=== PATIENT | female | born 1940 | race Caucasian/White ===

== ENCOUNTER 2024-08-08 20:20 | Inpatient (IN) | payer MEDICARE, OTHER, SELFPAY ==
[2024-08-08] VITALS (8 sets, daily range): BP systolic 113–127; BP diastolic 56–71; BMI 31.4
[2024-08-08 17:22] LABS: % Basophils 0.5 % (0-2); % Eosinophils 0.2 % (0-6); % Immature Granulocytes 0.7 % (0-0.5); % Lymphocytes 20.5 % (20.5-51.1); % Monocytes 5.4 % (1.7-9.3); % Neutrophils 72.7 % (42.2-75.2); Absolute Immature Granulocytes 0.1 10^3/uL (0-0.05); Absolute Lymphocytes 1.8 10^3/uL (1.2-3.4); Absolute Monocytes 0.5 10^3/uL (0.1-0.6); Absolute Neutrophils 6.3 10^3/uL (1.4-6.5); Hematocrit 40.3 % (37.0-47.0); Hemoglobin 14.1 g/dL (12.0-16.0); Mean Corpuscular Hgb 25.4 pg (27.0-31.0); Mean Corpuscular Volume 72.6 fL (81.0-99.0); Nucleated Red Blood Cells % 0 %; Platelet Count 495 10^3/uL (130-400); Red Blood Cell Count 5.55 10^6/uL (4.20-5.40); Red Cell Dist. Width 22.3 % (11.5-14.5); White Blood Cell Count 8.7 10^3/uL (4.8-10.8)
--- NOTE | 2024-08-08 17:22 | EDRN ---
Richard FRANCO in room speaking w/ daughter.
--- NOTE | 2024-08-08 17:30 | ED.GENMED ---
Addendum entered and electronically signed by Michael Washburn DO 08/09/24 13:26:
CRITICAL CARE STATEMENT: A total of 31 minutes of critical care time was provided for this patient. This includes management of unstable vital signs, evaluation of the patient at bedside, reviewing the patient's pertinent medical records discussion
with EMS providers and patient's family in addition to discussion with consultants, review of old EKGs and review of pertinent medical records. This time with separate from time utilized to perform the aforementioned documented procedures
Original Note:
History of Present Illness
<Tani Isabel PA-C - Last Filed: 08/08/24 19:20>
General
Chief Complaint: Fainting/Passed Out
Source: patient and family
Time Seen by Provider: 08/08/24 16:43
History of Present Illness
History of Present Illness:
83-year-old female presents via EMS from her daughter's house. Patient is away from her residence visiting her daughter. She typically stays at the facility called [facility] in [place]. She lives mostly independently there. Daughter picked
her up today and she seems off. She seems confused and weak. She has not been herself. Daughter notes that she has been taking her medications over the past 24 days. She had the sudden urge to have a bowel movement and went to the bathroom and
was falling asleep and desponded on the toilet. Patient cannot provide significant history. She denies any headache chest pain or abdominal pain. No other complaints at this time
Phy Exam
<Tani Isabel PA-C - Last Filed: 08/08/24 19:20>
Physical Exam
Physical Exam:
General: Well-appearing female no acute respiratory distress
HEENT: Normocephalic atraumatic
Heart: Regular rate and rhythm
Lungs: Clear no wheeze
Abdomen soft tender to the right side of the abdomen no guarding or rebound normal bowel sounds
Extremities: No cyanosis
Skin: Warm no rash
Course
<Tani Isabel PA-C - Last Filed: 08/08/24 19:20>
Orders/Labs/Results
Orders:
Orders
08/08/24 16:57
Electrocardiogram (*1) Urgent
Reason for Study: Chest Pain
Cardiac Monitoring- Treatment ONCE
EKG- Treatment ONCE
IV Insert/Care/Rem.- Treatment PRN
08/08/24 17:07
CR Chest - 2 Views Urgent
Comment:
Reason For Exam: weakness
08/08/24 17:12
Complete Blood Count/With Diff Urgent
Comprehensive Metabolic Panel Urgent
Free T4 Urgent
Magnesium Urgent
Comment: ADD ON
TSH Reflex To Free T4 Urgent
Comment: ADD ON
08/08/24 17:13
COVID-19 Antigen Urgent
Source: Nasal Swab
Influenza A+B Rapid Molecular Urgent
CHEIKH Source: Nasal Swab
Specimen Description:
08/08/24 17:27
CT Abd/pelvis W Iv Cont Urgent
Comment:
Reason For Exam: abdominal pain
08/08/24 17:47
Add On- LAB Urgent
Tests Added?: magnesium
Add On- LAB Urgent
Tests Added?: tsh reflex to t4
08/08/24 17:51
Urinalysis Reflex To Culture Urgent
Date Specimen was Collected: 08/08/24
Time Specimen was Collected: 17:41
Urine Microscopic Reflex Cult Urgent
Urine Culture Urgent
CHEIKH Source: U
Specimen Description:
Date Specimen was Collected: 08/08/24
Time Specimen was Collected: 17:41
08/08/24 18:30
Potassium Chloride [KCl] 40 meq 0.9% Sodium Chloride 250 ml [Nss] 250 ml IV NOW
08/08/24 18:40
Blood Culture Urgent
CHEIKH Source: Blood/Venous
Specimen Description:
08/08/24 18:52
Cortisol, Random Urgent
08/08/24 18:58
Piperacillin/Tazo 2.25 Gram [Zosyn] 2.25 grams in 50 ml IV NOW
Abnormal Lab Results
08/08/24 08/08/24
17:12 17:51
RBC 5.55 H 10^6/uL
(4.20-5.40)
MCV 72.6 L fL
(81.0-99.0)
MCH 25.4 L pg
(27.0-31.0)
RDW 22.3 H %
(11.5-14.5)
Plt Count 495 H 10^3/uL
(130-400)
Abs Immat Gran (auto) 0.1 H 10^3/uL
(0-0.05)
Immature Gran % 0.7 H %
(0-0.5)
Sodium 132 L mmol/L
(135-145)
Potassium 2.8 L mmol/L
(3.5-5.1)
Chloride 91 L mmol/L
(98-107)
Carbon Dioxide 18 L mmol/L
(22-30)
BUN 63 H mg/dl
(7-17)
Creatinine 1.5 H mg/dL
(0.6-1.0)
Glucose 137 H mg/dl
(70-99)
Total Bilirubin 2.4 H mg/dl
(0.2-1.3)
AST 47 H U/L
(14-36)
Alkaline Phosphatase 161 H U/L
(38-126)
TSH (Reflex) 86.10 H uIU/ml
(0.47-4.68)
Free T4 0.36 L ng/dl
(0.78-2.19)
Urine Ketones Trace A
(Negative)
Urine Bilirubin 1+ A
(Negative)
Leukocyte Esterase Rfl 2+ A
(Negative)
Urine WBC (Reflex) 50-60 A /HPF
(0-5)
Urine Bacteria (Reflex) Many A
(Negative)
08/08/24 17:12
08/08/24 17:12
Vital Signs
Initial and Last Documented VS:
Initial Vital Signs
Pulse Resp BP Pulse Ox
94 22 127/70 89
08/08/24 16:47 08/08/24 16:47 08/08/24 16:47 08/08/24 16:47
Last Documented Vital Signs
Temp Pulse Resp BP Pulse Ox
98.1 F 87 29 119/59 99
08/08/24 18:58 08/08/24 18:30 08/08/24 18:30 08/08/24 17:06 08/08/24 18:30
<Michael Washburn, DO - Last Filed: 08/08/24 18:40>
Orders/Labs/Results
Orders:
Orders
08/08/24 16:57
Electrocardiogram (*1) Urgent
Reason for Study: Chest Pain
Cardiac Monitoring- Treatment ONCE
EKG- Treatment ONCE
IV Insert/Care/Rem.- Treatment PRN
08/08/24 17:07
CR Chest - 2 Views Urgent
Comment:
Reason For Exam: weakness
08/08/24 17:12
Complete Blood Count/With Diff Urgent
Comprehensive Metabolic Panel Urgent
Free T4 Urgent
Magnesium Urgent
Comment: ADD ON
TSH Reflex To Free T4 Urgent
Comment: ADD ON
08/08/24 17:13
COVID-19 Antigen Urgent
Source: Nasal Swab
Influenza A+B Rapid Molecular Urgent
CHEIKH Source: Nasal Swab
Specimen Description:
08/08/24 17:27
CT Abd/pelvis W Iv Cont Urgent
Comment:
Reason For Exam: abdominal pain
08/08/24 17:47
Add On- LAB Urgent
Tests Added?: magnesium
Add On- LAB Urgent
Tests Added?: tsh reflex to t4
08/08/24 17:51
Urinalysis Reflex To Culture Urgent
Date Specimen was Collected: 08/08/24
Time Specimen was Collected: 17:41
Urine Microscopic Reflex Cult Urgent
Urine Culture Urgent
CHEIKH Source: U
Specimen Description:
Date Specimen was Collected: 08/08/24
Time Specimen was Collected: 17:41
08/08/24 18:30
Potassium Chloride [KCl] 40 meq 0.9% Sodium Chloride 250 ml [Nss] 250 ml IV NOW
08/08/24 18:40
Blood Culture Urgent
CHEIKH Source: Blood/Venous
Specimen Description:
08/08/24 18:52
Cortisol, Random Urgent
08/08/24 18:58
Piperacillin/Tazo 2.25 Gram [Zosyn] 2.25 grams in 50 ml IV NOW
Abnormal Lab Results
08/08/24 08/08/24
17:12 17:51
RBC 5.55 H 10^6/uL
(4.20-5.40)
MCV 72.6 L fL
(81.0-99.0)
MCH 25.4 L pg
(27.0-31.0)
RDW 22.3 H %
(11.5-14.5)
Plt Count 495 H 10^3/uL
(130-400)
Abs Immat Gran (auto) 0.1 H 10^3/uL
(0-0.05)
Immature Gran % 0.7 H %
(0-0.5)
Sodium 132 L mmol/L
(135-145)
Potassium 2.8 L mmol/L
(3.5-5.1)
Chloride 91 L mmol/L
(98-107)
Carbon Dioxide 18 L mmol/L
(22-30)
BUN 63 H mg/dl
(7-17)
Creatinine 1.5 H mg/dL
(0.6-1.0)
Glucose 137 H mg/dl
(70-99)
Total Bilirubin 2.4 H mg/dl
(0.2-1.3)
AST 47 H U/L
(14-36)
Alkaline Phosphatase 161 H U/L
(38-126)
TSH (Reflex) 86.10 H uIU/ml
(0.47-4.68)
Free T4 0.36 L ng/dl
(0.78-2.19)
Urine Ketones Trace A
(Negative)
Urine Bilirubin 1+ A
(Negative)
Leukocyte Esterase Rfl 2+ A
(Negative)
Urine WBC (Reflex) 50-60 A /HPF
(0-5)
Urine Bacteria (Reflex) Many A
(Negative)
08/08/24 17:12
08/08/24 17:12
Vital Signs
Initial and Last Documented VS:
Initial Vital Signs
Pulse Resp BP Pulse Ox
94 22 127/70 89
08/08/24 16:47 08/08/24 16:47 08/08/24 16:47 08/08/24 16:47
Last Documented Vital Signs
Temp Pulse Resp BP Pulse Ox
98.1 F 87 29 119/59 99
08/08/24 18:58 08/08/24 18:30 08/08/24 18:30 08/08/24 17:06 08/08/24 18:30
<Tani Isabel PA-C - Last Filed: 08/08/24 19:20>
MDM/Problems Addressed
Differential Diagnosis Includes:
Patient with weakness and confusion. Differential is large but includes worsening dementia versus underlying UTI versus COVID or flu versus electrolyte abnormality.
Patient is tender to the right side of the abdomen. CT pending. Will test for COVID and flu chest x-ray pending as well
Patient noted to be hypothermic with a rectal temperature of 95.6 degrees
<Tani Isabel PA-C - Last Filed: 08/08/24 19:20>
*Critical Care Note
Total Time (30-74mins, 75-104mins- exclusive of procedures): Not Applicable
<Tani Isabel PA-C - Last Filed: 08/08/24 19:20>
Update Note
Update Note:
Reviewed patient with emergency room attending. Also spoke with daughter who provided more history. She has not taken her medication in 24 days 1 of which was Synthroid. Added thyroid studies which did demonstrate high TSH and low free T4.
Patient's potassium is low at 2.8. CT still being read chest x-ray is negative. Patient will require admission for altered mental status hypothermia low thyroid state
ED Attending Note
<Tani sIabel PA-C - Last Filed: 08/08/24 19:20>
-
Portions of this chart may have been created with voice recognition software.� Occasional wrong word or��sound alike� substitutions may have occurred due to the inherent limitations of voice recognition software.
<Michael Washburn DO - Last Filed: 08/08/24 18:40>
ED Attending Note
Patient seen and examined by attending physician: Yes
I performed the substantive portion of visit, reviewed & personally made and approve the management plan that is documented in note by myself or GIULIA.: Yes
ED Attending Note:
Seen with PA examined independently 83-year-old female hypothyroid, hypertensive noncompliant with meds for about 3 weeks subacute onset of confusion fatigue abdominal pain nausea nearly passed out today while walking
Here she is hypothermic, renal insufficiency hypokalemic
CT scan noted formal report pending, labs are noted TSH cultures are pending patient daughter and granddaughter who is a medicine resident at [facility] or updated
Discharge Plan
Departure
Patient Disposition: Admit
Date of Disposition: 08/08/24
Time of Disposition: 19:19
Admit to: IMU
Presentation/result/management discussed w/ accepting MD/DO: Hospitalist
Discharge Problem:
Adult myxedema
Prescriptions:
No Action
atorvastatin 10 mg Tablet
10 mg PO DAILY
levothyroxine 100 mcg Tablet
100 mcg PO DAILY
metoprolol tartrate 25 mg Tablet
12.5 mg PO DAILY
cholecalciferol (vitamin D3) [Vitamin D3] 25 mcg (1,000 unit) Tablet
25 mcg PO DAILY
Referrals:
Nancy Bentley MD [Family Provider] -
Interventions
Interventions:
*Risk Screen - Suicide Last Done: 08/08/24 17:00
*General Assessment Last Done: 08/08/24 17:00
*Neglect/Abuse Screening Last Done: 08/08/24 17:00
ED- Fall Risk Assessment Last Done: 08/08/24 17:00
*ED COVID-19 Vaccine History Last Done: 08/08/24 16:57
ED- Cardiac Assessment Last Done: 08/08/24 17:55
ED- Neurological Assessment Last Done: 08/08/24 17:55
ED- Pulmonary Assessment Last Done: 08/08/24 17:55
Discharge Date and Time
Print Language: MOLDOVAN
[2024-08-08 17:35] LABS: Anisocytosis 1+; Macrocytosis 1+; Microcytosis 1+; Normal RBC Morphology No; Ovalocytes 1+; Poikilocytosis Slight; Schistocytes Slight
[2024-08-08 17:36] LABS: Other Cells 100
[2024-08-08 17:38] LABS: ALT (SGPT) 30 U/L (0-35); AST (SGOT) 47 U/L (14-36); Albumin 4.2 g/dl (3.5-5.0); Alkaline Phosphatase 161 U/L (38-126); Blood Urea Nitrogen 63 mg/dl (7-17); Calcium 9.2 mg/dl (8.4-10.2); Carbon Dioxide 18 mmol/L (22-30); Chloride 91 mmol/L (98-107); Estimated Creatinine Clearance 26 ml/min; Glucose 137 mg/dl (70-99); Potassium 2.8 mmol/L (3.5-5.1); Sodium 132 mmol/L (135-145); Total Bilirubin 2.4 mg/dl (0.2-1.3); Total Protein 7.3 g/dl (6.3-8.2); eGFR 34.58
[2024-08-08 17:43] LABS: COVID-19 Antigen Negative (Negative)
[2024-08-08 18:01] LABS: Urine Albumin Trace (Neg - Trace); Urine Bilirubin 1+ (Negative); Urine Character Clear (Clear); Urine Color Yellow; Urine Glucose Negative (Negative); Urine Ketone Trace (Negative); Urine Leukocyte 2+ (Negative); Urine Nitrite Negative (Negative); Urine Occult Blood Negative (Negative); Urine Specific Gravity 1.015 (<1.030); Urine Urobilinogen Negative (Neg - 1+)
[2024-08-08 18:06] LABS: Magnesium 1.8 mg/dl (1.6-2.3)
[2024-08-08 18:09] LABS: Urine Red Blood Cell 0-2 /HPF (0-2)
[2024-08-08 18:10] LABS: Urine Bacteria Many (Negative); Urine White Cell 50-60 /HPF (0-5)
--- NOTE | 2024-08-08 18:30 | EDRN ---
Pharmacist Arin called to mix and send potassium IV at this time.
[2024-08-08] MEDS: KCL 270 MEQ IV (18:51)
[2024-08-08 19:14] LABS: Free T4 0.36 ng/dl (0.78-2.19)
--- NOTE | 2024-08-08 19:19 | HPS.HSE ---
Family Physician
-
Family Physician: Nancy Bentley
Chief Complaint
-
Weakness and change in mental status
History of Present Illness
This is an 83-year-old female with past medical history of hypertension, hypothyroidism, hyperlipidemia who presents emergency department by daughter with confusion weakness and despondence.
Patient apparently was in usual state of health lives by herself in [place]. Today when daughter came to visit her she thought that the patient's thinking was cloudy. She seemed weak and confused. Members of her facility reported that the
patient has not been eating dinner. Patient itself did not immediately complain of anything except for some blood back pain which was not unusual for her. Seen ambulate this way the daughter decided to bring the mother to our house. There she
continued to remain weak and confused. She complained of some abdominal discomfort and tenesmus. While she was on the commode the patient had an episode of unresponsiveness. Since then she has been sleepy until brought to the emergency
department. Patient unable to provide any specific complaints.
According to daughter the patient has not taking Synthroid for the last month. She is also noncompliant with her other medications including her metoprolol and atorvastatin. There was a prior history of acute renal failure in the setting of severe
dehydration from lack of p.o. intake in the remote past.
In the Emergency Department she was hypothermic to 95.9, blood pressure was 120/60, heart rate was 87 and she was satting 99% on room air. ECG shows sinus rhythm with PACs. Rate was 86. There is no acute ST or T wave changes. CBC was
unremarkable. Chemistry is notable for a sodium of 132, potassium of 2.8, bicarb of 18, BUN of 63 and a creatinine of 1.5. Mild LFT abnormalities. TSH was markedly elevated at 86. Chest x-ray was clear. CT of the abdomen pelvis is pending. UA
was equivocal with many squamous cells but also WBCs, bacteria and leukocyte esterase. She was covered with Zosyn in the emergency department. COVID test was negative. Influenza was negative.
Medical History
Past Medical History
Past Medical History: Reports HTN, Hypercholesterolemia and Hypothyroidism
Past Surgical History: Reports Orthopedic (Knee Replacement. ) and Other (Stacey Fundoplication)
Social History
Tobacco: Non-smoker
Alcohol: None
Drug: None
Personal: Single
Living: Alone
Employment: Retired
Family History
Family History: Not pertinent
Allergies / Home Medications
Allergies reflects when Allergies were last updated in [employer].
Home Medications with original date entered in [employer]
Allergy/Medication List:
Allergies
Allergy/AdvReac Type Severity Reaction Status Date / Time
Sulfa (Sulfonamide Allergy Unknown Unverified 08/08/24 18:55
Antibiotics)
Home Medications
atorvastatin 10 mg tablet 10 mg PO DAILY 08/08/24
cholecalciferol (vitamin D3) 25 mcg (1,000 unit) tablet (Vitamin D3) 25 mcg PO DAILY 08/08/24
levothyroxine 100 mcg tablet 100 mcg PO DAILY 08/08/24
metoprolol tartrate 25 mg tablet 12.5 mg PO DAILY 08/08/24
Review of Systems
-
History Source: Patient and Family
Constitutional: Reports Fatigue
EENT: Reports No Symptoms
Respiratory: Reports No Symptoms
Cardiac: Reports No Symptoms
Abdomen/GI: Reports Abdominal Pain
: Reports No Symptoms
Neurological: Reports Weakness
Endocrine: Reports No Symptoms
Hematologic/Lymphatic: Reports No Symptoms
Psych: Reports No Symptoms
Physical Exam
Vital Signs
Vital Signs
Temp Pulse Resp BP Pulse Ox
98.1 F 87 29 119/59 99
08/08/24 18:58 08/08/24 18:30 08/08/24 18:30 08/08/24 17:06 08/08/24 18:30
Physical Exam
General: No Apparent Distress
HEENT: NormoCephalic, Anicteric, Atraumatic and PERRLA
Respiratory: Clear
Cardiac: S1/S2 and Irregular Rhythm
Breast: Deferred by me
GI: Soft, Non Tender, Non Distended and Normal Bowel Sounds
Rectal: Deferred by Provider
Genito-urinary: No costovertebral tender
Musculoskeletal: No Clubbing, No Cyanosis and No Edema
Skin: Warm
Neuro: AO x 3
Hematologic/Lymphatic: No Lymphadenopathy
Psych: Anxious
Laboratory Results
-
08/08/24 17:12
08/08/24 17:12
Laboratory Results
Total Bilirubin 2.4 mg/dl (0.2-1.3) H 08/08/24 17:12
AST 47 U/L (14-36) H 08/08/24 17:12
ALT 30 U/L (0-35) 08/08/24 17:12
Alkaline Phosphatase 161 U/L (38-126) H 08/08/24 17:12
Data Reviewed
-
Diagnostic Radiology: Image Personally Visualized and interpreted
CT Scan: Report Reviewed by me
Medical Tests (Nuc Med, Echo, EKG etc): Image Personally Visualized and interpreted
Lab Data: Labs Reviewed by me
Old Records: Reviewed
Impression/Plan
-
IMPRESSION:
83 y.o female with change in mental status, weakness, poor po intake and despondency. Non-compliant with levothyroxine and found to have TSH of 86. She is hyponatremia, hypokalemic with azotemia. U/A is equivocal despite straight cath. No other
signs of acute infection.
PLAN:
1. NASRIN - Pre-renal azotemia. No history of urinary obstruction or stones. History of poor po intake. No history of NSAIDs, ACEI or ARBs. No other insults. U/A is not remarkable for ATN or GN. 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
- admit to telemetry for hypokalemia and hypothryoid
- IV fluids with NS at 125 ml/hr for now
- bolus with 500 ml NS as well
- CT pending
- avoid nephrotoxins
- renal dose medications
- check urine Na, Cr and protein levels
2. Thyroid myxedema - Severe hypothyroidism. Possibly myxedema. No hypotension, heart failure, heart block. History of noncompliance.
- d/w Dr. Pearl (endocrine). IV levothyroxine 80 mcg now. No official inpatient consult required.
- continue 80 mcg daily
- check random and am cortisol
3. Hypokalemia - History of decreased po intake and hyponatremia. Sinus arrhythmia.
- telemetry
- getting KCl 40 meq IV, will give 20 me po and repeat in 8 hours
- encourage po intake
4. Hyponatremia - multifactorial. NASRIN, dehydration and hypothyroid.
- continue iv fluids and thyroid medications as above
- check random cortisol
- check serum osm
5. UTI - Equivocal edivence given many squamos cells.
- zosyn given in ED
- continue with ceftriaxone for now (no history of resistant bacteria) and d/c if ngtd
- f/u urine cultures
DVT PPX - heparin sq
Code Status - DNR
UPDATEL
-CT with possible small bowel obstruction. No transition point. History of SBO about 7 years ago.
- will keep on clear liquids for now
- abd XR, small bowel follow through in am
- pain control and antiemetics
- surgical consult
[2024-08-08 20:40] LABS: Cortisol, Random 70.3 ug/dl
[2024-08-08] MEDS: NSS 1000 IV (20:42)
[2024-08-08] MEDS: ZOSYN 50 IV (20:43)
[2024-08-08] MEDS: TYLENOL 650 MG PO (20:45)
[2024-08-08 20:55] LABS: Creatine Phosphokinase 105 U/L (30-135)
[2024-08-08] MEDS: LEVOTHROID 80 MCG IV (22:29)
[2024-08-09] VITALS (11 sets, daily range): BP systolic 101–150; BP diastolic 55–111; BMI 32.9
[2024-08-09] MEDS: NSS 1000 IV ×2 (01:30→10:27)
[2024-08-09 02:02] LABS: Blood Urea Nitrogen 59 mg/dl (7-17); Calcium 8.6 mg/dl (8.4-10.2); Carbon Dioxide 19 mmol/L (22-30); Chloride 96 mmol/L (98-107); Estimated Creatinine Clearance 30 ml/min; Glucose 86 mg/dl (70-99); Potassium 2.2 mmol/L (3.5-5.1); Sodium 133 mmol/L (135-145); eGFR 41.06
[2024-08-09] MEDS: HEPARIN 5000 UNITS SC ×3 (02:36→17:48)
[2024-08-09] MEDS: KCL 20 MEQ PO ×2 (02:37)
[2024-08-09 03:34] LABS: Osmolality Urine 528 mOsm/kg (300-900)
[2024-08-09 03:36] LABS: Urine Albumin Trace (Neg - Trace); Urine Bilirubin Negative (Negative); Urine Character Slightly Cloudy (Clear); Urine Color Yellow; Urine Glucose Negative (Negative); Urine Ketone Trace (Negative); Urine Leukocyte 1+ (Negative); Urine Nitrite Positive (Negative); Urine Occult Blood Negative (Negative); Urine Urobilinogen Negative (Neg - 1+)
[2024-08-09 03:39] LABS: Urine Sodium 6 mmol/L (30-90)
[2024-08-09] MEDS: KCL 270 MEQ IV ×2 (03:48→10:27)
[2024-08-09 03:49] LABS: Urine Bacteria Many (Negative)
[2024-08-09 03:51] LABS: Urine White Cell >100 /HPF (0-5)
[2024-08-09 03:52] LABS: Urine Amorphous Seen; Urine Mucus Few; Urine Squamous Cell >30 /LPF (Few)
[2024-08-09] MEDS: ROCEPHIN 1000 MG IV (05:41)
[2024-08-09] MEDS: STERILE WATER FOR INJECTION 10 ML IV (05:41)
[2024-08-09 06:45] LABS: Hemoglobin 11.7 g/dL (12.0-16.0); Mean Corp Hgb Conc. 35.5 g/dL (33.0-37.0); Mean Corpuscular Hgb 25.8 pg (27.0-31.0); Mean Corpuscular Volume 72.7 fL (81.0-99.0); Mean Platelet Volume 8.9 fL (7.4-10.4); Platelet Count 386 10^3/uL (130-400); Red Blood Cell Count 4.54 10^6/uL (4.20-5.40); White Blood Cell Count 7.3 10^3/uL (4.8-10.8)
[2024-08-09 07:17] LABS: Blood Urea Nitrogen 54 mg/dl (7-17); Calcium 8.1 mg/dl (8.4-10.2); Carbon Dioxide 19 mmol/L (22-30); Chloride 99 mmol/L (98-107); Creatine Phosphokinase 110 U/L (30-135); Estimated Creatinine Clearance 33 ml/min; Glucose 85 mg/dl (70-99); Magnesium 1.8 mg/dl (1.6-2.3); Potassium 2.8 mmol/L (3.5-5.1); Sodium 133 mmol/L (135-145); eGFR 45.19
[2024-08-09 07:33] LABS: Free T3 0.92 pg/ml (2.77-5.27); Free T4 0.49 ng/dl (0.78-2.19)
[2024-08-09 07:47] LABS: Cortisol, Random 26.5 ug/dl
[2024-08-09] MEDS: LIPITOR 10 MG PO (08:26)
[2024-08-09] MEDS: KCL 40 MEQ PO (10:27)
[2024-08-09] MEDS: LOPRESSOR 12.5 MG PO (12:14)
--- NOTE | 2024-08-09 12:36 | W.CON.NEPH ---
Consultation
-
Date/Time Consultation Requested: 08/09/24928
Date/Time Consultation Performed: 08/09/24 1300
Requesting Provider: Allen London
Performing Provider: Denisha Sanchez
Reason for Consultation: NASRIN, hypokalemia
Medical History
-
Chief Complaint: Gen weakness, AMS
History of Present Illness:
83-year-old female with past medical history of hypertension on BB, hypothyroidism on levothyroxine, hyperlipidemia on statin who presents emergency department by daughter with confusion and weakness. .
Patient apparently was in usual state of health lives by herself in [facility]. when daughter came to visit her she thought that the patient noted to be weak and confused. Also patient has not been eating well. Daughter brought her home
and pt complained of some abdominal discomfort and tenesmus. While she was on the commode the patient had an episode of unresponsiveness. Since then she has been sleepy until brought to the emergency department. Patient unable to provide any
specific complaints and due to confusion is poor historian. Most of the history obtained through the chart. Reportedly per daughter patient has not taking Synthroid for the last month. She is also noncompliant with her other medications including
her metoprolol and atorvastatin. There was a prior history of acute renal failure in the setting of severe dehydration from lack of p.o. intake in the remote past.
In the Emergency Department she was hypothermic to 95.9, Chemistry is notable for a sodium of 132, potassium of 2.8, bicarb of 18, BUN of 63 and a creatinine of 1.5. Mild LFT abnormalities. TSH was markedly elevated at 86, started on IV LT4.
She was started on NS and IV , po kcl. repeat labs shows cr better at 1.2, but k still low 2.8 hence nephrology consulted.
Currently pt offers no cp or sob, dysuria. no n/v. no abd pain. no fever or cough.
Past Medical History
HTN, Hypercholesterolemia and Hypothyroidism
Past Surgical History: Other (Stacey Fundoplication, knee replacement)
Social History
Tobacco: Non-Smoker
Alcohol: None
Drug: None
Personal: Single
Living: Alone
Employment: Retired (worked in [employer])
Family History
Family History: Not Pertinent
Allergies / Home Medications
Allergy/AdvReac Type Severity Reaction Status Date / Time
Sulfa (Sulfonamide Allergy Unknown Unverified 08/08/24 18:55
Antibiotics)
�Medication �Instructions �Recorded �Confirmed �Type
atorvastatin 10 mg tablet 10 mg PO DAILY 08/08/24 08/08/24 History
cholecalciferol (vitamin D3) 25 25 mcg PO DAILY 08/08/24 08/08/24 History
mcg (1,000 unit) tablet (Vitamin
D3)
levothyroxine 100 mcg tablet 100 mcg PO DAILY 08/08/24 08/08/24 History
metoprolol tartrate 25 mg tablet 12.5 mg PO DAILY 08/08/24 08/08/24 History
Review of Systems
-
poor historian, limited history
Physical Exam
Vital Signs
Vital Signs
Temp Pulse Resp BP Pulse Ox
97.9 F 55 20 150/79 95
08/09/24 11:03 08/09/24 11:03 08/09/24 11:03 08/09/24 11:03 08/09/24 11:03
Lab Results
WBC 7.3 10^3/uL (4.8-10.8) 08/09/24 06:32
RBC 4.54 10^6/uL (4.20-5.40) 08/09/24 06:32
Hgb 11.7 g/dL (12.0-16.0) L 08/09/24 06:32
Hct 33.0 % (37.0-47.0) L 08/09/24 06:32
Plt Count 386 10^3/uL (130-400) D 08/09/24 06:32
Sodium 133 mmol/L (135-145) L 08/09/24 06:32
Potassium 2.8 mmol/L (3.5-5.1) L D 08/09/24 06:32
Chloride 99 mmol/L (98-107) 08/09/24 06:32
Carbon Dioxide 19 mmol/L (22-30) L 08/09/24 06:32
BUN 54 mg/dl (7-17) H 08/09/24 06:32
Creatinine 1.2 mg/dL (0.6-1.0) H 08/09/24 06:32
eGFR 45.19 08/09/24 06:32
Glucose 85 mg/dl (70-99) 08/09/24 06:32
Calcium 8.1 mg/dl (8.4-10.2) L 08/09/24 06:32
Albumin 4.2 g/dl (3.5-5.0) 08/08/24 17:12
Abnormal Lab Results
08/08/24 08/08/24 08/09/24
17:12 17:51 01:40
RBC 5.55 H
Hgb
Hct
MCV 72.6 L
MCH 25.4 L
RDW 22.3 H
Plt Count 495 H
Abs Immat Gran (auto) 0.1 H
Immature Gran % 0.7 H
Sodium 132 L 133 L
Potassium 2.8 L 2.2 L*
Chloride 91 L 96 L
Carbon Dioxide 18 L 19 L
BUN 63 H 59 H
Creatinine 1.5 H 1.3 H
Glucose 137 H
Calcium
Total Bilirubin 2.4 H
AST 47 H
Alkaline Phosphatase 161 H
TSH (Reflex) 86.10 H
Free T4 0.36 L
Free T3
Urine Ketones Trace A
Urine Nitrite
Urine Bilirubin 1+ A
Ur Leukocyte Esterase
Leukocyte Esterase Rfl 2+ A
Urine RBC
Urine WBC
Urine WBC (Reflex) 50-60 A
Urine Bacteria
Urine Bacteria (Reflex) Many A
Urine Sodium
08/09/24 08/09/24
03:18 06:32
RBC
Hgb 11.7 L
Hct 33.0 L
MCV 72.7 L
MCH 25.8 L
RDW 22.0 H
Plt Count
Abs Immat Gran (auto)
Immature Gran %
Sodium 133 L
Potassium 2.8 L D
Chloride
Carbon Dioxide 19 L
BUN 54 H
Creatinine 1.2 H
Glucose
Calcium 8.1 L
Total Bilirubin
AST
Alkaline Phosphatase
TSH (Reflex)
Free T4 0.49 L
Free T3 0.92 L
Urine Ketones Trace A
Urine Nitrite Positive A
Urine Bilirubin
Ur Leukocyte Esterase 1+ A
Leukocyte Esterase Rfl
Urine RBC 3-6 A
Urine WBC >100 A
Urine WBC (Reflex)
Urine Bacteria Many A
Urine Bacteria (Reflex)
Urine Sodium 6 L
CXR:
IMPRESSION:
No acute cardiopulmonary abnormality.
CT abd with IV contrast:
IMPRESSION:
There are numerous dilated loops of bowel within the mid abdomen adjacent to the anterior abdominal wall postoperative changes with hyperdense intraluminal contents which may likely represents small bowel obstruction.
There is thickened endometrium measuring 1.1 cm Recommend dedicated pelvic ultrasound for further evaluation.
Sigmoid colonic diverticulosis.
Moderate hiatal hernia containing stomach and pancreatic body. There is numerous surgical clips along the stomach.
Physical Exam
General: Awake, Alert, Oriented, No Distress and Nontoxic
HEENT: EOMI, Anicteric and Conjunctivae Clear
Respiratory: Clear, Normal Excursion and Nonlabored Respirations
Cardiac: S1/S2 and Regular Rate/Rhythm
Breast: Deferred by me
Abdomen: Soft, Nontender and Nondistended
Musculoskeletal: No Cyanosis and No Edema
Skin: No Rash
Neuro: Nonfocal/Grossly Intact
Psych: Appropriate and Other
Data Reviewed
-
Labs: Labs Reviewed by me and Discussed with Patient
Assessment/Plan
-
IMP:
NASRIN
Pre-renal azotemia.
A gap met acidosis
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
Severe hypothyroidism
Severe Hypokalemia
Hyponatremia
UTI
Microcytic anemia
HLD
Plan:
A/w gen weakness an AMS , noted severe hypothyroidism TSH 80
NASRIN-suspect prerenal, U na is low
UA-?UTI sample, CT shows horse shoe kidney with out obst , needed SC x1-follow bladder scan
cr is improving but contrast exposure on 08/08
cont IVF, monitor met acidosis, check L acid for A gap which is improving
Severe hypokalemia-multifactorial(hypothyroidism impairing h+ pump, also replacing LT4 causing cell shifts+poor po intake)
not sure if any GI losses
recheck labs later and replace k as needed, s/p 80meq this am
Hyponatremia -stable, likely hypovolemia is the cause, U osmo 528 and U na low
BP stable
check fe studies for microcytic anemia
wonder she has dementia underlying too
labs later today
--- NOTE | 2024-08-09 13:46 | CON.GS ---
Addendum entered and electronically signed by Yvon Watson MD 08/10/24 14:25:
Patient seen and examined on 08/10. Agree with assessment and plan below.
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 Yesterday, her daughter noted that she was a little confused, weak and had a poor appetite
and brought her to the ED for evaluation. She denies nausea and vomiting. She notes that she had a BM earlier today with some flatus. She denies pain. On exam, there is an incisional hernia present below the umbilicus which is partially reducible,
some tenderness with attempts to reduce. No overlying skin changes. Her only active complaint is feeling chilled.
Gen: NAD
Abd: soft, mild tenderness overlying incisional hernia with deep palpation and attempted reduction, ND, non-peritoneal, incisional hernia soft, partially reduced, no skin chnages
Labs and imaging were reviewed.
Patient is a 83 yo F p/w multiple medical comorbidities including hypokalemia, NASRIN, hypothyroidism, and possible SBO based on CT scan
CT demonstrates a segment of SB immediately underlying incisional hernia with fetalization and likely chronic wall thickening; possible related to adhesions of intermittent rubbing/incarceration with hernia. No pneumatosis or free air. Clinically
no signs of complete obstruction with passage of flatus and stool. AVSS and no leukocytosis. The natural history and pathophysiology of bowel obstructions was reviewed. Role for surgical intervention was reviewed; no urgent indication at this
time.. Her electrolyte abnormalities and hypothyroidism could be compounding any issues with her bowels. Recommend medical management. Currently tolerating clears.
--Continue clear liquids
--No emergent surgery planned, will follow for improvement with medical measures at this time. If patient does not improve from GI standpoint will plan contrast imaging to further evaluate
Original Note:
Medical History
-
Chief Complaint: confusion
History of Present Illness:
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 Yesterday, her daughter noted that she was a little confused, weak and had a poor appetite
and brought her to the ED for evaluation. She denies nausea and vomiting. She notes that she had a BM earlier today with some flatus. She denies pain. On exam, there is an incisional hernia present below the umbilicus which is partially reducible,
some tenderness with attempts to reduce. No overlying skin changes. Her only active complaint is feeling chilled.
Past Medical History
Past Medical History: HTN, Hypercholesterolemia and Hypothyroidism
Past Surgical History: Other (PEH repair with Stacey fundoplication (open))
Social History
Tobacco: Non-Smoker
Alcohol: None
Personal: Single
Family History
Family History: Reviewed & Not Pertinent
Allergies / Home Medications
Allergy/AdvReac Type Severity Reaction Status Date / Time
Sulfa (Sulfonamide Allergy Unknown Unverified 08/08/24 18:55
Antibiotics)
�Medication �Instructions �Recorded �Confirmed �Type
atorvastatin 10 mg tablet 10 mg PO DAILY 08/08/24 08/08/24 History
cholecalciferol (vitamin D3) 25 25 mcg PO DAILY 08/08/24 08/08/24 History
mcg (1,000 unit) tablet (Vitamin
D3)
levothyroxine 100 mcg tablet 100 mcg PO DAILY 08/08/24 08/08/24 History
metoprolol tartrate 25 mg tablet 12.5 mg PO DAILY 08/08/24 08/08/24 History
Review of Systems
-
History Source: Patient
All other systems: Negative unless noted
A 10 point review of systems was completed, and was negative except as per HPI.
Physical Exam
Vital Signs
Temp Pulse Resp BP Pulse Ox
97.9 F 55 20 150/79 95
08/09/24 11:03 08/09/24 11:03 08/09/24 11:03 08/09/24 11:03 08/09/24 11:03
08/08/24 08/09/24 08/10/24
06:59 06:59 06:59
Actual Weight 74.1 kg 73.936 kg
Body Mass Index (BMI) 32.9
Lab Results
08/09/24 06:32
WBC 7.3 10^3/uL (4.8-10.8) 08/09/24 06:32
Hgb 11.7 g/dL (12.0-16.0) L 08/09/24 06:32
Hct 33.0 % (37.0-47.0) L 08/09/24 06:32
Plt Count 386 10^3/uL (130-400) D 08/09/24 06:32
Abs Immat Gran (auto) 0.1 10^3/uL (0-0.05) H 08/08/24 17:12
Neutrophils % 72.7 % (42.2-75.2) 08/08/24 17:12
Physical Exam
General: Well Developed and Well Nourished
HEENT: Normocephalic
Respiratory: Non Labored Respirations
GI: Soft, Non Tender, Non Distended and Other (partially reducible lower incisional hernia without overlying skin changes, minimal tenderness with attempts at reduction)
Skin: Warm and Dry
Neuro: Awake, Alert and AO x 3
Psych: Calm
Data Reviewed
-
CT Scan: Image Personally Visualized and interpreted, Report Reviewed by me, Discussed with Physician and Discussed with Patient
Labs: Labs Reviewed by me, Discussed with Physician, Discussed with Patient and Discussed with Family
Assessment / Plan
-
83 yo female presenting with hypothermia, lethargy and confusion with significant electrolyte derangements being managed by medicine for thyroid myxedema with +UTi with urine cx growing GNB who had noted dilated loops of small bowel suggestive of
possible adhesive pSBO on CT w/o po contrast. There is a palpable incisional hernia without overlying skin changes which is partially reducible. On CT The hernia is fat containing. No bowel threat or compromise on imagign.
She reports she is passing stool/flatus. AFVSS. No leukocytosis
--Continue clear liquids
--No emergent surgery planned, will follow for improvement with medical measures at this time. If patient does not improve from GI standpoint will plan contrast imaging to further evaluate.
[2024-08-09] MEDS: TYLENOL 650 MG PO (13:58)
--- NOTE | 2024-08-09 14:32 | W.PN.HOSP.TC ---
Addendum entered and electronically signed by Allen Guthrie MD 08/09/24 17:42:
Physical Exam
NAD, resting comfortably in bed
Scleral anicteric
Moist mucous membranes
No JVD
CTA bilateral
Normal S1-S2
Soft nontender nondistended bowel sounds active
No peripheral pitting edema
Moves extremities spontaneously
AAOx2 (name and place, did not know the year)
Original Note:
Today's Communication/Plan
-
Imaging
CXR
IMPRESSION:
No acute cardiopulmonary abnormality.
CTAP
IMPRESSION:
There are numerous dilated loops of bowel within the mid abdomen adjacent to the anterior abdominal wall postoperative changes with hyperdense intraluminal contents which may likely represents small bowel obstruction.
There is thickened endometrium measuring 1.1 cm Recommend dedicated pelvic ultrasound for further evaluation.
Sigmoid colonic diverticulosis.
Moderate hiatal hernia containing stomach and pancreatic body. There is numerous surgical clips along the stomach.
Physical Exam
NAD, resting comfortably in bed
Scleral anicteric
Moist mucous membranes
No JVD
CTA bilateral
Normal S1-S2
Soft nontender nondistended bowel sounds active
No peripheral pitting edema
Moves extremities spontaneously
AAOx3
Assessment and Plan
Severe hypothyroidism
-TSH in the 80s, T4 0.49, T3 0.92
-Random cortisol 26.5
-Started on IV levothyroxine 80 mcg
-Endocrinology consulted
Electrolyte abnormalities with
-Hypokalemia
--Replete as needed
-Hyponatremia, hypovolemic
--UOsm 500's/cAosta low
-Provide IV fluids
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
-Baseline Cr unknown baseline
-Pre-renal, Acosta low
-Require SC x1, monitor output
-IVFluids
-Bladder scan
-Non-oligouric
-Avoid nephrotoxins and hypotension
-Nephrology consult
Anemia-Microcytic
-Without evidence of active bleeding
-Check Iron panel
-Transfuse if hgb <7
Assessment / Plan
Assessment / Plan
Anticipated Discharge: > 48 hours
Subjective/Interval History
-
Date of Service: August 09, 2024
Seen and examined. No new complaints. No acute overnight events.
Objective Data
-
Labs:
Laboratory Results
08/09/24 08/09/24
06:32 16:00
WBC 7.3
Hgb 11.7 L
Hct 33.0 L
Plt Count 386 D
Sodium 133 L Pending
Potassium 2.8 L D Pending
Chloride 99 Pending
Carbon Dioxide 19 L Pending
BUN 54 H Pending
Creatinine 1.2 H Pending
Glucose 85 Pending
Calcium 8.1 L Pending
Vital Signs:
Vital Signs
Temp Pulse Resp BP Pulse Ox
97.9 F 55 20 150/79 95
08/09/24 11:03 08/09/24 11:03 08/09/24 11:03 08/09/24 11:03 08/09/24 11:03
I&O
08/08/24 08/09/24 08/10/24
06:59 06:59 06:59
Intake Total 1355 / 1355 120 / 120
Output Total 425 / 425
Balance 930 / 930 120 / 120
--- NOTE | 2024-08-09 17:02 | PTCARENOTE ---
16:00 Lactic acid unable to be drawn. Nephrology and hospitalist aware. Multiple sticks attempted.
[2024-08-09 17:37] LABS: Blood Urea Nitrogen 43 mg/dl (7-17); Calcium 7.6 mg/dl (8.4-10.2); Carbon Dioxide 17 mmol/L (22-30); Chloride 105 mmol/L (98-107); Estimated Creatinine Clearance 38 ml/min; Glucose 82 mg/dl (70-99); Potassium 3.8 mmol/L (3.5-5.1); Sodium 135 mmol/L (135-145); eGFR 56.25
[2024-08-09] MEDS: LEVOTHROID 80 MCG IV (17:50)
[2024-08-09 18:44] LABS: Albumin 3.1 g/dl (3.5-5.0)
[2024-08-09] MEDS: SODIUM BICARBONATE 1075 MEQ IV (20:07)
[2024-08-09] MEDS: NSS IV (20:13)
[2024-08-10] VITALS (8 sets, daily range): BP systolic 96–135; BP diastolic 55–78; PULSE 50–59; O2SAT 99
[2024-08-10] MEDS: HEPARIN SC (02:27)
[2024-08-10] MEDS: ROCEPHIN 1000 MG IV (05:33)
[2024-08-10] MEDS: STERILE WATER FOR INJECTION 10 ML IV (05:33)
[2024-08-10] MEDS: SODIUM BICARBONATE 1075 MEQ IV (05:33)
[2024-08-10 08:38] LABS: Blood Urea Nitrogen 29 mg/dl (7-17); Calcium 7.6 mg/dl (8.4-10.2); Carbon Dioxide 22 mmol/L (22-30); Chloride 103 mmol/L (98-107); Estimated Creatinine Clearance 54 ml/min; Glucose 68 mg/dl (70-99); Iron 51 ug/dl (37-170); Potassium 3.4 mmol/L (3.5-5.1); Sodium 136 mmol/L (135-145); eGFR > 60.00
[2024-08-10 08:46] LABS: Percent Saturation 14 % (20-50); Total Iron Binding Capacity 343 ug/dl (265-497)
[2024-08-10] MEDS: HEPARIN 5000 UNITS SC ×3 (08:47→23:08)
[2024-08-10] MEDS: LIPITOR 10 MG PO (08:47)
[2024-08-10] MEDS: LOPRESSOR 12.5 MG PO (08:47)
[2024-08-10 09:21] LABS: Ferritin 35.6 ng/ml (11.1-264.0)
[2024-08-10 09:32] LABS: Hematocrit 36.3 % (37.0-47.0); Hemoglobin 12.5 g/dL (12.0-16.0); Mean Corp Hgb Conc. 34.4 g/dL (33.0-37.0); Mean Corpuscular Hgb 26.7 pg (27.0-31.0); Mean Corpuscular Volume 77.6 fL (81.0-99.0); Mean Platelet Volume 9.4 fL (7.4-10.4); Platelet Count 402 10^3/uL (130-400); Red Blood Cell Count 4.68 10^6/uL (4.20-5.40); Red Cell Dist. Width 23.5 % (11.5-14.5); White Blood Cell Count 4.8 10^3/uL (4.8-10.8)
--- NOTE | 2024-08-10 09:41 | W.PN.HOSP.TC ---
Today's Communication/Plan
-
Assessment / Plan
Assessment / Plan
Imaging
CXR
IMPRESSION:
No acute cardiopulmonary abnormality.
CTAP
IMPRESSION:
There are numerous dilated loops of bowel within the mid abdomen adjacent to the anterior abdominal wall postoperative changes with hyperdense intraluminal contents which may likely represents small bowel obstruction.
There is thickened endometrium measuring 1.1 cm Recommend dedicated pelvic ultrasound for further evaluation.
Sigmoid colonic diverticulosis.
Moderate hiatal hernia containing stomach and pancreatic body. There is numerous surgical clips along the stomach.
Physical Exam
NAD, resting comfortably in bed
Scleral anicteric
Moist mucous membranes
No JVD
CTA bilateral
Normal S1-S2
Soft nontender nondistended bowel sounds active
No peripheral pitting edema
Moves extremities spontaneously
AAOx3
Assessment and Plan
Severe hypothyroidism
--secondary to complaince of levothyroxine at home
-TSH in the 80s, T4 0.49, T3 0.92
-Random cortisol 26.5
-Started on IV levothyroxine 80 mcg
-Endocrinology support remote via [employer] connect appreciated,
--have asked for input on oral dosing
Electrolyte abnormalities with
-Hypokalemia
--Replete as needed
-Hyponatremia, hypovolemic
--UOsm 500's/Acosta low
-Provide IV fluids
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
-Baseline Cr unknown baseline
-Pre-renal, Acosta low
-Require SC x1, monitor output
-IVFluids
-Bladder scan
-Non-oligouric
-Avoid nephrotoxins and hypotension
-Nephrology consult
Anemia-Microcytic
-Without evidence of active bleeding
-Check Iron panel
-Transfuse if hgb <7
Obstruction, passing gas and moving bowels
-Plan to advance diet as tolerated
-Low concern for obstruction at this point.
Spoke with both Daugters over the phone this morning.
-Informed both of lab findings from this morning
-Informed them about speech tx, PT/OT consult
--Karla tells me that she would like to take her mom home, but she has a lot of stairs and would be difficult for her to climb as she cannot do a single step at this time.
---PT/OT consult
---Speech consulted
Anticipated Discharge: > 48 hours
Subjective/Interval History
-
Date of Service: August 10, 2024
seen and examined
no new comlpaints.
no acute overnight events
feeling better. asking to drink some coffee
knows that she is at [facility], month and year, halloween around the corner, election coming up and does not like Dustin Bragg, did not like him in the 's
had a bm this AM, no NV
dentures in container on tray
Objective Data
-
Labs:
Laboratory Results
08/10/24
06:37
WBC 4.8
Hgb 12.5
Hct 36.3 L
Plt Count 402 H
Sodium 136
Potassium 3.4 L
Chloride 103
Carbon Dioxide 22
BUN 29 H
Creatinine 0.7
Glucose 68 L
Calcium 7.6 L
Vital Signs:
Vital Signs
Temp Pulse Resp BP Pulse Ox
97.3 F 94 20 124/55 100
08/10/24 07:39 08/10/24 08:47 08/10/24 07:39 08/10/24 08:47 08/10/24 07:39
I&O
08/09/24 08/10/24 08/11/24
06:59 06:59 06:59
Intake Total 1355 / 1355 1080 / 1080
Output Total 425 / 425
Balance 930 / 930 1080 / 1080
--- NOTE | 2024-08-10 13:14 | W.PN.GS2 ---
Addendum entered and electronically signed by Song Ching MD 08/10/24 13:53:
I saw and examined the patient.
The OEM SALES MANAGER's note was reviewed and I agree with the note.
Comment:
No overnight events. Denies N/V. Flatus and having bowel movements. Denies bloating.
AFVSS, ABD soft, nondistended, nontender, no R/G
� More likely resolved ileus secondary to UTI versus SBO; having bowel function; okay for regular diet
� Continue antibiotics for UTI
� General Surgery to sign off, please call for questions or concerns
Original Note:
Today's Communication / Plan
-
Regular diet
Assessment / Plan
-
83 yo female presenting with hypothermia, lethargy and confusion with significant electrolyte derangements being managed by medicine for thyroid myxedema with +UTi with urine cx growing GNB who had noted dilated loops of small bowel suggestive of
possible adhesive pSBO on CT w/o po contrast.
Passing flatus/stool. No n/v/pain. Tolerating clears
AFVSS. No leukocytosis
--Advance to regular diet
--Medical management as per primary team
Subjective Data
-
Date of Service: August 10, 2024
Patient seen and examined at bedside with Dr. Ching. Denies n/v. Tolerating clears. Passing a lot of flatus with BM this am. Denies pain.
Objective Data
-
Intake and Output
08/09/24 08/10/24 08/11/24
06:59 06:59 06:59
Intake Total 1355 / 1355 1080 / 1080
Output Total 425 / 425
Balance 930 / 930 1080 / 1080
Intake:
Oral fluids 1080 / 1080
IV fluids (Total) 1075 / 1075
Nss 1,000 ml @ 100 mls/hr IV . 200 / 200
Q10H STA Rx#:[id number]
Nss 1,000 ml @ 125 mls/hr IV . 875 / 875
Q8H ELIN Rx#:[id number]
IV piggybacks 280 / 280
Nss 1,000 ml @ 100 mls/hr IV . 10 10
Q10H STA Rx#:[id number]
Nss 1,000 ml @ 125 mls/hr IV . 270 / 270
Q8H ELIN Rx#:[id number]
Output:
Straight cath output 425 / 425
Other:
Number of approximated MODERATE 2
amounts of urine
Number of approximated LARGE 1
amounts of urine
How many times incontinent 3
SMALL amount urine
How many times incontinent 2
SATURATED amount urine
Vital Signs
Temp Pulse Resp BP Pulse Ox
97.5 F 55 20 96/56 100
08/10/24 11:52 08/10/24 11:52 08/10/24 11:52 08/10/24 11:52 08/10/24 11:52
Lab Results
08/10/24 06:37
08/10/24 06:37
Calcium 7.6 mg/dl (8.4-10.2) L 08/10/24 06:37
Magnesium 1.8 mg/dl (1.6-2.3) 08/09/24 06:32
Total Bilirubin 2.4 mg/dl (0.2-1.3) H 08/08/24 17:12
AST 47 U/L (14-36) H 08/08/24 17:12
ALT 30 U/L (0-35) 08/08/24 17:12
Alkaline Phosphatase 161 U/L (38-126) H 08/08/24 17:12
Total Protein 7.3 g/dl (6.3-8.2) 08/08/24 17:12
Albumin 3.1 g/dl (3.5-5.0) L 08/09/24 16:59
Physical Exam
-
NAD
ABD soft, nt, nd
[2024-08-10] MEDS: KCL 40 MEQ PO (14:02)
--- NOTE | 2024-08-10 16:46 | W.PN.NEPH.PH ---
Today's Communication / Plan
-
follow labs, k replace prn
Assessment/Plan
-
IMP:
NASRIN
Pre-renal azotemia.
A gap met acidosis
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
Severe hypothyroidism
Severe Hypokalemia
Hyponatremia
UTI
Microcytic anemia
HLD
Plan:
A/w gen weakness an AMS , noted severe hypothyroidism TSH 80
NASRIN-suspect prerenal, U na is low
UA-?UTI sample, CT shows horse shoe kidney with out obst , needed SC x1-follow bladder scan
cr is normal now
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
Hyponatremia -improved, likely hypovolemia is the cause, U osmo 528 and U na low
met acidosi sis better, likely d/c IVF later today
encourage po intake as it seem to improve now, sugr s/o
BP stable
hb stable, microcytic with fe def-fe sat low at 14%, can start po iron
wonder she has dementia underlying too
d/w family and nursing
will s/o, call with ?s
-
-
Date of Service: August 10, 2024
CC / HPI / ROS
-
Chief Complaint:
NASRIN, hypokalemia
History of Present Illness:
cr normal now, BP stable
tolerating po
no fever. k low 3.4 but better
met acidosis is better
Review of Systems:
no cp or sob
no n/v
Labs
-
Labs:
WBC 4.8 10^3/uL (4.8-10.8) 08/10/24 06:37
RBC 4.68 10^6/uL (4.20-5.40) 08/10/24 06:37
Hgb 12.5 g/dL (12.0-16.0) 08/10/24 06:37
Hct 36.3 % (37.0-47.0) L 08/10/24 06:37
Plt Count 402 10^3/uL (130-400) H 08/10/24 06:37
Sodium 136 mmol/L (135-145) 08/10/24 06:37
Potassium 3.4 mmol/L (3.5-5.1) L 08/10/24 06:37
Chloride 103 mmol/L (98-107) 08/10/24 06:37
Carbon Dioxide 22 mmol/L (22-30) 08/10/24 06:37
BUN 29 mg/dl (7-17) H 08/10/24 06:37
Creatinine 0.7 mg/dL (0.6-1.0) 08/10/24 06:37
eGFR > 60.00 08/10/24 06:37
Glucose 68 mg/dl (70-99) L 08/10/24 06:37
Calcium 7.6 mg/dl (8.4-10.2) L 08/10/24 06:37
Albumin 3.1 g/dl (3.5-5.0) L 08/09/24 16:59
Physical Exam
-
Vital Signs:
Vital Signs
Temp Pulse Resp BP Pulse Ox
97.6 F 55 20 135/68 100
08/10/24 15:43 08/10/24 15:43 08/10/24 15:43 08/10/24 15:43 08/10/24 15:43
Cardiovascular:: Regular rate and rhythm
Respiratory:: Bilateral: CTA
Lung Excursion:: Normal
Abdomen:: Nontender and Soft
Extremity Edema:: None: Bilateral:
Scott Catheter: No
--- NOTE | 2024-08-10 16:50 | CM ---
Patient seen at bedside along with daughters Yaya & Elena
IA completed
Lives at [facility] in [facility]
PLOF: Independent with a walker
DME: [employer], shower chair, grab bars
Denies any housing/utilities/food/transportation insecurities
PT recommends Home Health - patient states had [facility] in past & agreeable.
Referral to [facility]
PCP: Dr. Bentley
Pharmacy: [facility]
PLAN: Home with visiting nurse
[2024-08-10] MEDS: SODIUM BICARBONATE IV (17:13)
[2024-08-10] MEDS: LEVOTHROID 80 MCG IV (17:22)
[2024-08-11] VITALS (7 sets, daily range): BP systolic 85–162; BP diastolic 54–75
[2024-08-11] MEDS: STERILE WATER FOR INJECTION 10 ML IV (05:42)
[2024-08-11] MEDS: ROCEPHIN 1000 MG IV (05:42)
[2024-08-11 08:01] LABS: Hematocrit 36.1 % (37.0-47.0); Hemoglobin 12.4 g/dL (12.0-16.0); Mean Corp Hgb Conc. 34.3 g/dL (33.0-37.0); Mean Corpuscular Hgb 26.6 pg (27.0-31.0); Mean Corpuscular Volume 77.3 fL (81.0-99.0); Mean Platelet Volume 9.8 fL (7.4-10.4); Platelet Count 307 10^3/uL (130-400); Red Blood Cell Count 4.67 10^6/uL (4.20-5.40); Red Cell Dist. Width 23.4 % (11.5-14.5); White Blood Cell Count 4.5 10^3/uL (4.8-10.8)
[2024-08-11 08:07] LABS: Blood Urea Nitrogen 22 mg/dl (7-17); Calcium 7.9 mg/dl (8.4-10.2); Carbon Dioxide 19 mmol/L (22-30); Chloride 105 mmol/L (98-107); Estimated Creatinine Clearance 54 ml/min; Glucose 64 mg/dl (70-99); Potassium 3.3 mmol/L (3.5-5.1); Sodium 136 mmol/L (135-145); eGFR > 60.00
--- NOTE | 2024-08-11 08:18 | PTOTSP ---
Speech Pathology Evaluation
83F with admission for NASRIN presents with a functional oropharyngeal swallow. No overt s/s of aspiration or penetration demonstrated this date.
Recommend:
1. Regular textures, thin liquids
2. Meds as tolerated
3. Strategies: chew well, liquid wash to clear oral residue as needed
4. No further skilled LEATHER TOGGLER service indicated at this time. Please re-consult if overt s/s of aspiration arise.
[2024-08-11] MEDS: LOPRESSOR 12.5 MG PO (09:24)
[2024-08-11] MEDS: HEPARIN 5000 UNITS SC ×3 (09:24→23:17)
[2024-08-11] MEDS: LIPITOR 10 MG PO (09:24)
[2024-08-11] MEDS: KCL 40 MEQ PO ×2 (10:38→17:14)
--- NOTE | 2024-08-11 11:27 | CM ---
Addendum entered by Mikayla Griggs 08/11/24 14:01:
IMM explained and signed. In chart
Original Note:
Met with patient and daughter Elena
Frank today 3.3
PT [facility] - Patient resides at [facility] in [facility].
Discussed with daughter that [facility] accepted patient
Also pamphlets given to daughter for private aid agencies - [employer]
PLAN: Plan: Home to [facility] with [facility] fax #: [phone]
--- NOTE | 2024-08-11 13:10 | W.PN.HOSP.TC ---
Addendum entered and electronically signed by Allen Guthrie MD 08/11/24 13:17:
did not take po levothyroxine for 3weeks
Original Note:
Today's Communication/Plan
-
Assessment / Plan
Assessment / Plan
Imaging
CXR
IMPRESSION:
No acute cardiopulmonary abnormality.
CTAP
IMPRESSION:
There are numerous dilated loops of bowel within the mid abdomen adjacent to the anterior abdominal wall postoperative changes with hyperdense intraluminal contents which may likely represents small bowel obstruction.
There is thickened endometrium measuring 1.1 cm Recommend dedicated pelvic ultrasound for further evaluation.
Sigmoid colonic diverticulosis.
Moderate hiatal hernia containing stomach and pancreatic body. There is numerous surgical clips along the stomach.
Physical Exam
NAD, resting comfortably in bed
Scleral anicteric
Moist mucous membranes
No JVD
CTA bilateral
Normal S1-S2
Soft nontender nondistended bowel sounds active
No peripheral pitting edema
Moves extremities spontaneously
AAOx3
Assessment and Plan
Severe hypothyroidism
--secondary to complaince of levothyroxine at home
-TSH in the 80s, T4 0.49, T3 0.92
-Random cortisol 26.5
-Started on IV levothyroxine 80 mcg
-Endocrinology support remote via [employer] connect appreciated,
--have asked for input on oral dosing
Electrolyte abnormalities with
-Hypokalemia
--Replete as needed
-Hyponatremia, hypovolemic
--UOsm 500's/Acosta low
-Provide IV fluids
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
-Baseline Cr unknown baseline
-Pre-renal, Acosta low
-Require SC x1, monitor output
-IVFluids
-Bladder scan
-Non-oligouric
-Avoid nephrotoxins and hypotension
-Nephrology consult
Anemia-Microcytic
-Without evidence of active bleeding
-Check Iron panel
-Transfuse if hgb <7
Obstruction, passing gas and moving bowels
-Plan to advance diet as tolerated
-Low concern for obstruction at this point.
Spoke with both Daugters over the phone this morning.
-Informed both of lab findings from this morning
-Informed them about speech tx, PT/OT consult
--Karla tells me that she would like to take her mom home, but she has a lot of stairs and would be difficult for her to climb as she cannot do a single step at this time.
---PT/OT consult: home health rec
CM to discuss with family Dispo.
Anticipated Discharge: Within 24 hours
Subjective/Interval History
-
Date of Service: August 11, 2024
seen and examined
no new complaints
no aucte overnight events
eating breakfast
urinating on own
Objective Data
-
Labs:
Laboratory Results
08/11/24
06:02
WBC 4.5 L
Hgb 12.4
Hct 36.1 L
Plt Count 307 D
Sodium 136
Potassium 3.3 L
Chloride 105
Carbon Dioxide 19 L
BUN 22 H
Creatinine 0.7
Glucose 64 L
Calcium 7.9 L
Vital Signs:
Vital Signs
Temp Pulse Resp BP Pulse Ox
98 F 51 20 85/54 100
08/11/24 11:05 08/11/24 11:05 08/11/24 11:05 08/11/24 11:05 08/11/24 11:05
I&O
08/10/24 08/11/24 08/12/24
06:59 06:59 06:59
Intake Total 1080 / 1080 480 / 480
Balance 1080 / 1080 480 / 480
[2024-08-11] MEDS: LEVOTHROID 80 MCG IV (17:17)
[2024-08-12 03:36] VITALS: BP 143/68
[2024-08-12] MEDS: ROCEPHIN 1000 MG IV (05:23)
[2024-08-12] MEDS: STERILE WATER FOR INJECTION 10 ML IV (05:24)
[2024-08-12 07:25] VITALS: BP 111/64
[2024-08-12 07:48] LABS: Hematocrit 36.3 % (37.0-47.0); Hemoglobin 12.2 g/dL (12.0-16.0); Mean Corp Hgb Conc. 33.6 g/dL (33.0-37.0); Mean Corpuscular Hgb 25.6 pg (27.0-31.0); Mean Corpuscular Volume 76.3 fL (81.0-99.0); Mean Platelet Volume 9.1 fL (7.4-10.4); Platelet Count 341 10^3/uL (130-400); Red Blood Cell Count 4.76 10^6/uL (4.20-5.40); Red Cell Dist. Width 24.1 % (11.5-14.5); White Blood Cell Count 4.4 10^3/uL (4.8-10.8)
[2024-08-12] MEDS: LOPRESSOR 12.5 MG PO (08:18)
[2024-08-12] MEDS: LIPITOR 10 MG PO (08:18)
[2024-08-12] MEDS: HEPARIN 5000 UNITS SC (08:18)
[2024-08-12 08:45] LABS: Blood Urea Nitrogen 16 mg/dl (7-17); Calcium 8.2 mg/dl (8.4-10.2); Carbon Dioxide 22 mmol/L (22-30); Chloride 103 mmol/L (98-107); Estimated Creatinine Clearance 54 ml/min; Glucose 70 mg/dl (70-99); Sodium 136 mmol/L (135-145); eGFR > 60.00
--- NOTE | 2024-08-12 10:01 | W.PN.HOSP.TC ---
Today's Communication/Plan
-
CM consulted for dispo planning
More than 30 minutes spent in discharge including
Final examination of the patient
Summarizing hospital stay
Instructions for continuing care to all relevant caregivers
Preparation of discharge records, prescriptions, and referral forms
Total time spent (in minutes): 32min
Assessment / Plan
Assessment / Plan
Imaging
CXR
IMPRESSION:
No acute cardiopulmonary abnormality.
CTAP
IMPRESSION:
There are numerous dilated loops of bowel within the mid abdomen adjacent to the anterior abdominal wall postoperative changes with hyperdense intraluminal contents which may likely represents small bowel obstruction.
There is thickened endometrium measuring 1.1 cm Recommend dedicated pelvic ultrasound for further evaluation.
Sigmoid colonic diverticulosis.
Moderate hiatal hernia containing stomach and pancreatic body. There is numerous surgical clips along the stomach.
Physical Exam
NAD, resting comfortably in bed
Scleral anicteric
Moist mucous membranes
No JVD
CTA bilateral
Normal S1-S2
Soft nontender nondistended bowel sounds active
No peripheral pitting edema
Moves extremities spontaneously
AAOx3
Assessment and Plan
Severe hypothyroidism
--secondary to compliance of levothyroxine at home
-TSH in the 80s, T4 0.49, T3 0.92
-Random cortisol 26.5
-Started on IV levothyroxine 80 mcg
-Endocrinology support remote via [employer] connect appreciated,
--have asked for input on oral dosing
Electrolyte abnormalities with
-Hypokalemia
--Replete as needed
-Hyponatremia, hypovolemic
--UOsm 500's/Acosta low
-Provide IV fluids
Klebsiella UTI
-Rather pansensitive, only resistant to ampicillin
-Completed 3days of antibiotics
-Due to the confusion was not sure if she was having symptoms or not, per guidelines rec to treat
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
-Baseline Cr unknown baseline, now 0.7
-Pre-renal, Acosta low
-Require SC x1, monitor output
-IVFluids
-Bladder scan
-Non-oligouric
-Avoid nephrotoxins and hypotension
-Nephrology consult
Anemia-Microcytic
-Without evidence of active bleeding
-Check Iron panel
-Transfuse if hgb <7
Obstruction, passing gas and moving bowels
-Plan to advance diet as tolerated
-Low concern for obstruction at this point.
Spoke with both Daugters over the phone this morning.
-Informed both of lab findings from this morning
-Informed them about speech tx, PT/OT consult
--Karla tells me that she would like to take her mom home, but she has a lot of stairs and would be difficult for her to climb as she cannot do a single step at this time.
---PT/OT consult: home health rec
CM to discuss with family Dispo.
Anticipated Discharge: Today
Subjective/Interval History
-
Date of Service: August 12, 2024
seen and examinged
sitting in bedside chair playing on her iphone
Objective Data
-
Labs:
Laboratory Results
08/12/24
07:11
WBC 4.4 L
Hgb 12.2
Hct 36.3 L
Plt Count 341
Sodium 136
Potassium 4.0
Chloride 103
Carbon Dioxide 22
BUN 16
Creatinine 0.7
Glucose 70
Calcium 8.2 L
Vital Signs:
Vital Signs
Temp Pulse Resp BP Pulse Ox
97.5 F 50 22 111/64 100
08/12/24 07:25 08/12/24 08:18 08/12/24 07:25 08/12/24 08:18 08/12/24 07:25
I&O
08/11/24 08/12/24 08/13/24
06:59 06:59 06:59
Intake Total 480 / 480 660 / 660
Balance 480 / 480 660 / 660
--- NOTE | 2024-08-12 10:36 | PN.CDI ---
CDI
- -
CDI:
Physician Documentation Request
Admit Date: 08/08/24 20:20
Dear Doctor Cleveland,
Please review the following and provide your response in the progress notes.
Clinical Indicators:
- 08/12 PN 'Obstruction, passing gas and moving bowels'
- 'Low concern for obstruction at this point'
- 08/10 Gen Surg 'dilated loops of small bowel suggestive of possible adhesive pSBO'
- 'More likely resolved ileus secondary to UTI versus SBO'
- 08/08 CT Abd/Pel 'numerous dilated loops of bowel ...which may likely represents small bowel obstruction.'
In an attempt to clarify potentially conflicting documentation, please clarify the etiology of the CT findings of dilated loops of bowel:
Partial SBO
Ileus
Other (please specify)
Use of terms such as suspected, likely, concern for, or probable (associated with a specific diagnosis that is being evaluated, monitored, or treated as if it exists) are acceptable and can be coded in the inpatient setting, when documented at the
time of discharge.
Thank you,
Zeus So RN
CDI Specialist
Please use your independent medical judgment in providing your response.
--- NOTE | 2024-08-12 10:42 | PN.CDI ---
CDI
- -
CDI:
Physician Documentation Request
Admit Date: 08/08/24 20:20
Dear Doctor Cleveland,
Please review the following and provide your response in the progress notes.
Clinical Indicators:
- 08/08 ER Physician indicates patient brought in for confusion and weakness
- 'Patient cannot provide significant history'
- 08/08 H&P 'change in mental status'
- 'patient has not taking Synthroid for the last month...also noncompliant with her other medications'
- 08/10 Nephrology 'wonder she has dementia underlying too'
Please clarify in the Progress Notes and Discharge Summary which, if any of the following, is the most likely etiology of the confusion/altered mental status.
Encephalopathy - indicate type, such as metabolic, toxic, septic, alcoholic, anoxic, hypertensive etc. due to a specific condition such as UTI, CVA, hyponatremia etc.
Baseline Dementia - indicate type, such as Alzheimer's, senile, vascular, Lewy body etc., and any associated behavioral disturbances (aggressive, combative or violent behavior) if present
Acute or subacute confusional state due to (specify known or suspected etiology)
Other (please specify)
Use of terms such as suspected, likely, concern for, or probable (associated with a specific diagnosis that is being evaluated, monitored, or treated as if it exists) are acceptable and can be coded in the inpatient setting, when documented at the
time of discharge.
Thank you,
Zeus So RN
CDI Specialist
Please use your independent medical judgment in providing your response.
--- NOTE | 2024-08-12 11:14 | CM ---
Addendum entered by Rosa M Hudson 08/12/24 11:33:
Physician expressed concern that patient daughter had concern about getting patient into car and did not [facility]. Patient daughter denied concerns and stated 'everything is planned'. CM will
continue to follow for discharge planning needs.
Plan; home to [facility] with [place]
Original Note:
Patient seen at bedside. Patient recommended CM call daughter. Patient complaining of knee pain, community education specialist made aware as nursing was not available. 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 Patient to be followed by [place] and will be staying at [facility]. CM will continue to follow for discharge planning needs.
PLAN: Home to [facility] with [place] [facility]
[place] fax #: [phone]
[2024-08-12 11:35] VITALS: BP 115/58
--- NOTE | 2024-08-12 11:55 | W.DCSUMMARY ---
Addendum entered and electronically signed by Allen Guthrie MD 08/12/24 14:13:
toxic metabolic encephalopathy seocndaryt o severe hypothyroidism
ilieus
Addendum entered and electronically signed by Allen Guthrie MD 08/12/24 12:03:
VN with [employer] provided via CM
Original Note:
Discharge Summary
Discharge Data
Date of Admission: 08/08/24
Date of Discharge: 08/12/24
-
Pending Results: No
Hospital Course
83-year-old female with past medical history of hypertension, hypothyroidism, hyperlipidemia presented by daughter with confusion weakness and despondence. Found to have high TSH and low T4. Concern for severe hypothyroidism. Before starting
treatment cortisol was check that was high therefore, IV Levothyroxine 80mcg was provided. Discussed these finding with Endocrinology recommended that since this was related to noncompliance as missed doses for 3weeks can go back to living facility
on the same dose of 100mcg with repeating thyroid function testing with PCP in 2-4weeks.
Initial lab, showed an NASRIN with Cr of 1.5 which improved with fluids to baseline of 0.7. Additionally, because of the confusion antibiotics were started for a urine analysis that was concerning for UTI, urine culture grew out Klebsiella that was
sensitive to ceftriaxone. Blood cultures were negative. Completed 3days of antibiotics. Evaluated by physical therapy that recommended home care.
During the time of admission there was concern for bowel obstruction therefore seen by general surgery for which did not believe this was the case and therefore, did not recommend surgery.
CXR
IMPRESSION:
No acute cardiopulmonary abnormality.
CTAP
IMPRESSION:
There are numerous dilated loops of bowel within the mid abdomen adjacent to the anterior abdominal wall postoperative changes with hyperdense intraluminal contents which may likely represents small bowel obstruction.
There is thickened endometrium measuring 1.1 cm Recommend dedicated pelvic ultrasound for further evaluation.
Sigmoid colonic diverticulosis.
Moderate hiatal hernia containing stomach and pancreatic body. There is numerous surgical clips along the stomach.
Discharge Plan
-
Patient Disposition: Skilled Nursing/SNF
Discharge Diagnosis/Procedures: Severe hypothyroidism
Diet: As tolerated
Activity: As tolerated
Activity Restrictions/Additional Instructions:
Presented by daughter with confusion weakness and despondence. Found to have high TSH and low T4. Concern for severe hypothyroidism. Before starting treatment cortisol was check that was high therefore, IV Levothyroxine 80mcg was provided. Discussed
these finding with Endocrinology recommended that since this was related to noncompliance as missed doses for 3weeks can go back to living facility on the same dose of 100mcg with repeating thyroid function testing with PCP in 2-4weeks.
Initial lab, showed an NASRIN with Cr of 1.5 which improved with fluids to baseline of 0.7. Additionally, because of the confusion antibiotics were started for a urine analysis that was concerning for UTI, urine culture grew out Klebsiella that was
sensitive to ceftriaxone. Blood cultures were negative. Completed 3days of antibiotics. Evaluated by physical therapy that recommended home care.
During the time of admission there was concern for bowel obstruction therefore seen by general surgery for which did not believe this was the case and therefore, did not recommend surgery.
CXR
IMPRESSION:
No acute cardiopulmonary abnormality.
CTAP
IMPRESSION:
There are numerous dilated loops of bowel within the mid abdomen adjacent to the anterior abdominal wall postoperative changes with hyperdense intraluminal contents which may likely represents small bowel obstruction.
There is thickened endometrium measuring 1.1 cm Recommend dedicated pelvic ultrasound for further evaluation.
Sigmoid colonic diverticulosis.
Moderate hiatal hernia containing stomach and pancreatic body. There is numerous surgical clips along the stomach.
Referrals:
Nancy Bentley MD [Family Provider] -
Dae Castaneda MD [Consulting Staff] - in one to two weeks
Prescriptions:
Continued
atorvastatin 10 mg Tablet
10 mg PO DAILY
levothyroxine 100 mcg Tablet
100 mcg PO DAILY
metoprolol tartrate 25 mg Tablet
12.5 mg PO DAILY
cholecalciferol (vitamin D3) [Vitamin D3] 25 mcg (1,000 unit) Tablet
25 mcg PO DAILY
Discharge Orders:
Discharge Patient (As Directed); Ordered 08/12/24
Ordered By: Allen Guthrie
Discharge Date and Time
Print Language: BENGALI
== END 2024-08-12 15:44 | disposition home health service (06) | DRG 643 ==
LOC: 4 EAST ACU 20:20
PROVIDERS: Nurse Practitioner Family; Physician Assistant; ADMITTING PHYSICIAN Internal Medicine; ATTENDING PHYSICIAN Hospitalist; CONSULT PHYSICIAN Internal Medicine; EMERGENCY PHYSICIAN Emergency Medicine; FAMILY PHYSICIAN Internal Medicine; OTHER PHYSICIAN Surgery
DX: E03.9 Hypothyroidism, unspecified (principal); G92.8 Other toxic encephalopathy; N17.9 Acute kidney failure, unspecified; E87.1 Hypo-osmolality and hyponatremia; E87.20 Acidosis, unspecified; N39.0 Urinary tract infection, site not specified; F03.93 Unspecified dementia, unspecified severity, with mood disturbance; Z66 Do not resuscitate; T38.1X6A Underdosing of thyroid hormones and substitutes, initial encounter; I10 Essential (primary) hypertension; E78.00 Pure hypercholesterolemia, unspecified; D50.9 Iron deficiency anemia, unspecified; E87.6 Hypokalemia; B96.1 Klebsiella pneumoniae [K. pneumoniae] as the cause of diseases classified elsewhere; Q63.1 Lobulated, fused and horseshoe kidney; Z11.52 Encounter for screening for COVID-19; Z96.659 Presence of unspecified artificial knee joint; Z88.2 Allergy status to sulfonamides; Z91.138 Patient's unintentional underdosing of medication regimen for other reason; Z79.890 Hormone replacement therapy; Z79.899 Other long term (current) drug therapy
CPT/HCPCS: 51701; 71046; 74177; 80048; 80053; 81003; 81015; 82040; 82533; 82550; 82570; 82728; 83540; 83550; 83735; 83935; 84300; 84439; 84443; 84481; 85025; 85027; 87040; 87070; 87077; 87086; 87186; 87502; 87811; 92610; 93005; 96365; 97162; 97166; 99285; J7030; Q9967